=== PATIENT | male | born 1945 | race Caucasian/White ===

== ENCOUNTER 2021-03-21 01:06 | Emergency (ER) | payer MEDICARE, OTHER ==
[~2021-03-21] VITALS: Ht 170.2 cm; Wt 91.6 kg
[2021-03-21] MEDS ORDERED: ATORVASTATIN CA80 MG PO (01:26)
[2021-03-21] MEDS ORDERED: PLAVIX 75 MG TA75 MG PO (01:26)
[2021-03-21] MEDS ORDERED: ACCUPRIL5 MG PO (01:26)
[2021-03-21] MEDS ORDERED: DILTIAZEM ER180 M2 PO (01:26)
[2021-03-21] MEDS ORDERED: LISINOPRIL20 MG PO (01:27)
[2021-03-21] MEDS ORDERED: PROTONIX40 M2 PO (01:27)
[2021-03-21] MEDS ORDERED: FUROSEMIDE 20 M20 MG PO (01:27)
[2021-03-21] MEDS ORDERED: TOPROL XL25 MG PO (01:27)
[2021-03-21] MEDS ORDERED: PROSCAR 5MG TABL5 M1 PO (01:27)
[2021-03-21] MEDS ORDERED: LOPRESSOR50 MG PO (01:28)
[2021-03-21] MEDS ORDERED: ASA81BEC PO (01:29)
[2021-03-21 02:03] LABS: ABSOLUTE BASOPHILS 0.1 thou/uL (0.0-0.2); ABSOLUTE EOSINOPHILS 0.1 thou/uL (0.0-0.7); ABSOLUTE LYMPHOCYTES 2.4 thou/uL (0.8-5.3); ABSOLUTE MONOCYTES 0.8 thou/uL (0.0-1.2); ABSOLUTE NEUTROPHILS 4.9 thou/uL (1.6-8.1); EOSINOPHILS 1.7 %; HEMATOCRIT 45.5 % (42.0-52.0); HEMOGLOBIN 15.4 gm/dL (14.0-18.0); LYMPHOCYTES 28.4 %; MCH 29.4 pg (26.0-34.0); MCHC 33.9 g/dL (28.0-37.0); MCV 86.7 fL (80.0-100.0); MONOCYTES 9.6 %; NUCLEATED RBCS 0 /100WBC; PLATELET COUNT* 173 thou/uL (150-400); POLYS 59.3 %; RBC 5.25 mil/uL (4.50-6.00); RDW-CV 15.2 % (10.5-14.5); WBC 8.4 thou/uL (4.0-11.0)
[2021-03-21 02:10] LABS: CALCIUM 8.3 mg/dL (8.5-10.1); CREATININE 1.1 mg/dL (0.6-1.3); POTASSIUM 3.2 mmol/L (3.5-5.1)
[2021-03-21 02:15] LABS: ALBUMIN 3.2 g/dL (3.4-5.0); TOTAL BILIRUBIN 0.4 mg/dL (<0.1-1.0); TOTAL PROTEIN 6.3 g/dL (6.4-8.2)
[2021-03-21] MEDS ORDERED: DOXYCYCLINE 10100 MG PO (02:36)
[2021-03-21] MEDS ORDERED: HYDROCODON-ACE1 EAC8 PO (02:42)
[2021-03-21 02:47] VITALS: BP 156/92
== END 2021-03-21 02:48 | disposition home or self-care (01) ==
LOC: M.ERS 01:06
PROVIDERS: Emergency Medicine
DX: L03.115 Cellulitis of right lower limb (principal); I10 Essential (primary) hypertension; Z86.14 Personal history of Methicillin resistant Staphylococcus aureus infection; Z95.5 Presence of coronary angioplasty implant and graft; Z85.46 Personal history of malignant neoplasm of prostate; Z79.899 Other long term (current) drug therapy; Z79.82 Long term (current) use of aspirin